=== PATIENT | female | born 1995 | race Caucasian/White ===

== ENCOUNTER 2022-06-11 08:00 | Outpatient (CLI) | payer OTHER | END 2022-06-11 23:59 | disposition home or self-care (01) | LOC: LAB.N 08:00 | PROVIDERS: ATTEND Nurse Practitioner | DX: R30.0 Dysuria (principal) | CPT/HCPCS: 87086; 87181 ==

== ENCOUNTER 2022-09-04 15:22 | Outpatient (CLI) | payer OTHER ==
[2022-09-04 15:47] LABS: BASOPHILS % (AUTO) 0.5 %; EOSINOPHILS # (AUTO) 0.3 10^3/uL (0.0-0.7); EOSINOPHILS % (AUTO) 3.9 %; HCT - HEMATOCRIT 39.9 % (37.0-47.0); HGB - HEMOGLOBIN 13.4 g/dL (12.0-16.0); LYMPHOCYTES # (AUTO) 1.4 10^3/uL (1.5-3.5); LYMPHOCYTES % (AUTO) 21.1 %; MEAN CORPUSCULAR HEMOGLOBIN 31.2 pg (27.0-31.0); MEAN CORPUSCULAR HGB CONC 33.6 g/dL (32.0-36.0); MEAN PLATELET VOLUME 8.6 fL (7.9-10.8); MONOCYTES # (AUTO) 0.5 10^3/uL (0.0-1.0); MONOCYTES % (AUTO) 8.2 %; NEUTROPHILS # (AUTO) 4.3 10^3/uL (1.5-6.6); NEUTROPHILS % (AUTO) 65.7 %; PLT - PLATELET COUNT 291 10^3/uL (130-450); RED BLOOD COUNT 4.29 10^6/uL (4.20-5.40); WHITE BLOOD COUNT 6.6 x10^3/uL (4.8-10.8)
[2022-09-05 06:09] LABS: HBsAG SCREEN Negative (Negative); HCV AB 0.2 s/co ratio (0.0-0.9)
[2022-09-05 08:10] LABS: RPR Non Reactive (Non Reactive)
[2022-09-05 11:09] LABS: VARICELLA-ZOSTER AB IGG 1702 index (Immune >165)
[2022-09-05 22:08] LABS: HIV SCREEN 4TH GENERATION Non Reactive (Non Reactive)
== END 2022-09-04 15:23 | disposition home or self-care (01) ==
LOC: LAB 15:22
PROVIDERS: ATTEND Nurse Practitioner Obstetrics & Gynecology
DX: Z36.89 Encounter for other specified antenatal screening (principal)
CPT/HCPCS: 36415; 85025; 86592; 86762; 86787; 86803; 86850; 86900; 86901; 87340; 87389

== ENCOUNTER 2022-11-08 11:29 | Outpatient (CLI) | payer OTHER ==
[2022-11-12 12:09] LABS: AFP MOM See interpretation. (.); AFP VALUE 70.3 ng/mL (.); DIA MOM See interpretation. (.); DIA VALUE 123.93 pg/mL (.); DSR (BY AGE) 1 IN 971 (.); DSR (SECOND TRIMESTER) 1 IN See interpretation. (.); GESTAT. AGE METHOD As provided (.); HCG MOM See interpretation. (.); HCG VALUE 44696 mIU/mL (.); MATERNAL AGE AT EDD 26.2 yr (.); OPEN SPINA BIFIDA RISK 1 IN See interpretation. (.); RESULTS Report (.); TEST RESULTS See interpretation. (.); TRISOMY 18 RISK See interpretation. (.); UE3 MOM See interpretation. (.); UE3 VALUE 1.53 ng/mL (.)
== END 2022-11-08 11:30 | disposition home or self-care (01) ==
LOC: LAB 11:29
PROVIDERS: ATTEND Nurse Practitioner Obstetrics & Gynecology
DX: Z13.79 Encounter for other screening for genetic and chromosomal anomalies (principal)
CPT/HCPCS: 36415; 81511

== ENCOUNTER 2022-11-15 14:34 | Outpatient (CLI) | payer OTHER ==
--- NOTE | 2022-11-15 16:41 | Ultrasound Report ---
PROCEDURE: OB Detailed Eval INDICATIONS: SUPERVISION OF OUTSIDE/PRIOR DATING DATA: Last menstrual period (LMP): 06/11/2022. LMP-based estimated date of delivery (LUCIANA): 03/18/2023. First dating scan (date and location): 08/23/2022. Estimated date of delivery (LUCIANA) from first dating scan: 03/29/2023. The below data below was generated using the ultrasound LUCIANA of 03/29/2023 TECHNIQUE: Real-time scanning was performed of the fetus, with image documentation and biometric measurements. COMPARISON: Outside Limited ultrasound 08/23/2022 FINDINGS: General: A single living intrauterine gestation is present. Presentation: Breech Placenta: Placental position is posterior, without previa. Amniotic fluid index: 12.8 cm, within normal limits for gestational age. Largest pocket 3.8 cm heart rate: 148 beats per minute. Maternal cervical canal: 4.6 cm long; normal length is 2.5 cm or more. biometrics: Biparietal diameter: 5.0 cm 21 weeks 0 days Head circumference: 18.7 cm 21 weeks 0 days Abdominal circumference: 16.3 cm 21 weeks 3 days Femur length: 3.4 cm 20 weeks 2 days Estimated gestational age from initial scan: 20 weeks 6 days Composite gestational age from present scan: 20 weeks 6 days Estimated weight and percentile: 400 g, 59th percentile Measurement variability in biometric dating: +/- 10 days from 12-20 weeks gestation, +/- 2 weeks from 20-30 weeks gestation, +/- 3 weeks at 30 weeks gestation or later. Anatomic survey: Neuro: Ventricles are normal at less than 10 mm. Cisterna magna is normal at 3-11 mm. Cerebellum i s normal in size and morphology. Nuchal skin fold: Normal at less than 6 mm between 14 and 20 weeks gestational age. Face: Nose and lips, facial profile are normal. Spine: No evidence for spina bifida. Heart: 4-chambered heart is present, with normal ventricular outflow tracts. Diaphragm: Diaphragm is intact. Stomach: Left-sided stomach is present. Kidneys: No hydronephrosis. Normal is less than 5 mm in 2nd trimester, less than 7 mm in 3rd trimester. Cord: 3 vessel cord has orthotopic insertion. Bladder: Normal in size. Extremities: All 4 extremities are visualized. IMPRESSION: Single live intrauterine with ultrasound gestational age today of 20 weeks 6 days. Anatomy is within normal limits. Reviewed by: Yuridia Finney MD on 11/15/2022 4:40 PM PST Approved by: Yuridia Finney MD on 11/15/2022 4:40 PM PST Station ID: [id number]
== END 2022-11-15 14:35 | disposition home or self-care (01) ==
LOC: DI 14:34
PROVIDERS: ATTEND Nurse Practitioner Obstetrics & Gynecology
DX: Z34.02 Encounter for supervision of normal first pregnancy, second trimester (principal); Z3A.20 20 weeks gestation of pregnancy; Z36.89 Encounter for other specified antenatal screening

== ENCOUNTER 2022-12-31 13:54 | Outpatient (CLI) | payer OTHER | END 2022-12-31 13:55 | disposition critical access hospital (66) | LOC: EMS 13:54 | DX: O99.891 Other specified diseases and conditions complicating pregnancy (principal); R55 Syncope and collapse; R10.32 Left lower quadrant pain; Z3A.27 27 weeks gestation of pregnancy | CPT/HCPCS: A0425; A0429 ==

== ENCOUNTER 2022-12-31 14:19 | Outpatient (CLI) | payer OTHER ==
[2022-12-31] MEDS ORDERED: LACTATED RINGERS 1,000 ML IV ONE (14:25)
[2022-12-31] MEDS ORDERED: ONDANSETRON 4 MG/2 ML VIAL IVP PRN (14:25)
[2022-12-31] MEDS ORDERED: ACETAMINOPHEN 500 MG TABLET PO PRN (14:27)
[2022-12-31 16:39] LABS: BASOPHILS % (AUTO) 0.4 %; EOSINOPHILS # (AUTO) 0.2 10^3/uL (0.0-0.7); EOSINOPHILS % (AUTO) 1.6 %; HCT - HEMATOCRIT 34.5 % (37.0-47.0); HGB - HEMOGLOBIN 11.3 g/dL (12.0-16.0); LYMPHOCYTES # (AUTO) 1.1 10^3/uL (1.5-3.5); LYMPHOCYTES % (AUTO) 11.7 %; MEAN CORPUSCULAR HEMOGLOBIN 31.1 pg (27.0-31.0); MEAN CORPUSCULAR HGB CONC 32.8 g/dL (32.0-36.0); MEAN PLATELET VOLUME 8.7 fL (7.9-10.8); MONOCYTES # (AUTO) 0.6 10^3/uL (0.0-1.0); MONOCYTES % (AUTO) 6.4 %; NEUTROPHILS # (AUTO) 7.5 10^3/uL (1.5-6.6); NEUTROPHILS % (AUTO) 78.6 %; PLT - PLATELET COUNT 274 10^3/uL (130-450); RED BLOOD COUNT 3.63 10^6/uL (4.20-5.40); RED CELL DISTRIBUTION WIDTH 12.3 % (12.0-15.0); WHITE BLOOD COUNT 9.5 x10^3/uL (4.8-10.8)
[2022-12-31 19:20] VITALS: BP 155/65
--- NOTE | 2022-12-31 23:21 | PROVIDER PROGRESS NOTE ---
- HPI Chief Complaint: Fall Current : Vital Signs Temperature 36.6 C 12/31/22 14:28 Heart Rate 92 12/31/22 14:28 Respiratory Rate 18 12/31/22 14:28 Blood Pressure 122/75 12/31/22 14:28 Temperature 36.6 C 12/31/22 14:28 Heart Rate 88 12/31/22 18:38 Respiratory Rate 17 12/31/22 18:38 Blood Pressure 155/65 H 12/31/22 18:38 O2 Saturation If not protocol: Oxygen Flow, liters/minute - Procedures OB Procedure Performed: NST Diagnosis/Indication for NST: Other - Plan Plan: Jasmine presents to [facility] with c/o syncopal episode while at the store and fell into a display rack where she hit the right side of her head, her right wrist, and her right hip. She state when she came to she rolled over on her side so she was initially unsure if she landed on her stomach however the coal or ore controller told her she fell on to her side. She is currently nauseous and has a headache. She reports +FM, she denies leakage of fluid or vaginal bleeding. She denies contractions. She states she had lunch approximately 1 hour prior to the episode but has only had approximately 10oz of water to drink today. She has a history of anemia in her last . She did have a syncopal episode in the first trimester of her first but other than that 1 incident she has never had anything like this before. NST reactive. FHR baseline 130s, moderate variability, + accels, no decels No contractions appreciated via tocometry CBC WNL 1 Liter of LR administered over 1 hour. Continuous monitoring x 4 hours -reassuring Tylenol administered via IV Zofran administered via IV Pt released home with head injury precautions and PTL precautions. She was instructed to increase her fluid intake to 100oz per day and rest for the remainder of the week and work note provided. Pt has emergency contact information. F/u as scheduled in the office or sooner if needed. FIINAL DIAGNOSIS: Fall in , second trimester
== END 2022-12-31 18:35 | disposition home or self-care (01) ==
LOC: WFO 14:19 → FBP 14:20 → WFO 18:35
PROVIDERS: ATTEND Obstetrics & Gynecology
DX: O99.891 Other specified diseases and conditions complicating pregnancy (principal); R55 Syncope and collapse; R51.9 Headache, unspecified; R11.0 Nausea; W18.30XA Fall on same level, unspecified, initial encounter; Y92.512 Supermarket, store or market as the place of occurrence of the external cause
CPT/HCPCS: 85025; 96361; 96374; 99215; A9270; J7120

== ENCOUNTER 2023-01-09 10:59 | Outpatient (CLI) | payer OTHER | END 2023-01-09 23:59 | disposition home or self-care (01) | LOC: LAB.N 10:59 | PROVIDERS: ATTEND Nurse Practitioner Obstetrics & Gynecology | DX: Z36.9 Encounter for antenatal screening, unspecified (principal) | CPT/HCPCS: 36415; 82950 ==

== ENCOUNTER 2023-04-01 00:15 | Inpatient (IN) | payer OTHER ==
[2023-04-01] MEDS ORDERED: NIFEdipine 10 MG CAPSULE PO PRN (00:28)
[2023-04-01] MEDS ORDERED: LABETALOL 20 MG/4 ML SYRINGE IVP PRN ×3 (00:28)
[2023-04-01] MEDS ORDERED: miSOPROStoL 200 MCG TABLET PR PRN (00:28)
[2023-04-01] MEDS ORDERED: SODIUM CHLORIDE FLUSH 0.9% 10 ML SYRINGE IVP PRN (00:28)
[2023-04-01] MEDS ORDERED: OXYTOCIN 10 UNIT/ML VIAL IM PRN (00:28)
[2023-04-01] MEDS ORDERED: fentaNYL 100 MCG/2 ML VIAL IVP PRN (00:28)
[2023-04-01] MEDS ORDERED: CARBOPROST TROMETHAMINE 250 MCG/ML AMP IM PRN (00:28)
[2023-04-01] MEDS ORDERED: miSOPROStoL 200 MCG TABLET BC PRN (00:28)
[2023-04-01] MEDS ORDERED: lidocaine 1% 20 ML MDV ID PRN (00:28)
[2023-04-01] MEDS ORDERED: OXYTOCIN/SODIUM CHLORIDE 500 ML IV PRN (00:28)
[2023-04-01] MEDS ORDERED: TERBUTALINE 1 MG/ML VIAL SUBQ PRN (00:28)
[2023-04-01] MEDS ORDERED: hydrALAZINE INJ 20 MG/ML VIAL IVP PRN ×2 (00:28)
[2023-04-01] MEDS ORDERED: METHYLERGONOVINE 0.2 MG/ML VIAL IM PRN (00:28)
[2023-04-01] MEDS ORDERED: LACTATED RINGERS 500 ML IV ONE (00:28)
[2023-04-01] MEDS ORDERED: TRANEXAMIC ACID IN NACL 1,000 MG/100 ML BAG IV PRN (00:28)
[2023-04-01 01:06] LABS: BASOPHILS % (AUTO) 0.3 %; EOSINOPHILS # (AUTO) 0.1 10^3/uL (0.0-0.7); EOSINOPHILS % (AUTO) 1.7 %; HCT - HEMATOCRIT 35.8 % (37.0-47.0); HGB - HEMOGLOBIN 11.7 g/dL (12.0-16.0); LYMPHOCYTES # (AUTO) 1.5 10^3/uL (1.5-3.5); LYMPHOCYTES % (AUTO) 18.8 %; MEAN CORPUSCULAR HEMOGLOBIN 28.2 pg (27.0-31.0); MEAN CORPUSCULAR HGB CONC 32.7 g/dL (32.0-36.0); MEAN CORPUSCULAR VOLUME 86.3 fL (81.0-99.0); MONOCYTES # (AUTO) 0.6 10^3/uL (0.0-1.0); MONOCYTES % (AUTO) 7.5 %; NEUTROPHILS # (AUTO) 5.5 10^3/uL (1.5-6.6); NEUTROPHILS % (AUTO) 70.5 %; PLT - PLATELET COUNT 296 10^3/uL (130-450); RED BLOOD COUNT 4.15 10^6/uL (4.20-5.40); RED CELL DISTRIBUTION WIDTH 13.6 % (12.0-15.0); WHITE BLOOD COUNT 7.8 x10^3/uL (4.8-10.8)
[2023-04-01] MEDS ORDERED: ROPIVACAINE 0.2% 200 MG/100 ML BAG EP ONE (01:19)
[2023-04-01] MEDS ORDERED: NALBUPHINE 10 MG/ML AMP IVP PRN (02:06)
[2023-04-01] MEDS ORDERED: ROPIVACAINE 0.2% 200 MG/100 ML BAG EP PRN (02:06)
[2023-04-01] MEDS ORDERED: NALOXONE 0.4 MG/ML VIAL IVP PRN (02:06)
[2023-04-01] MEDS ORDERED: ONDANSETRON 4 MG/2 ML VIAL IVP PRN (02:06)
[2023-04-01] MEDS ORDERED: diphenhydrAMINE INJ 50 MG/ML VIAL IVP PRN (02:06)
[2023-04-01] MEDS ORDERED: METOCLOPRAMIDE 10 MG/2 ML VIAL IVP PRN (02:06)
--- NOTE | 2023-04-01 02:10 | ANESTHESIA ---
Pre-Anesthesia VS, & Labs - Diagnosis active labor - Procedure labor epidural Height: 5 ft 5 in - NPO Other (clears) - Is Patient ?: Yes Home Medications and Allergies Active Medications Carboprost Tromethamine (Carboprost Tromethamine 250 Mcg/Ml Amp) 250 mcg IM .ONCE PRN PRN Reason: Hemorrhage Diphenhydramine HCl (Diphenhydramine Inj 50 Mg/Ml Vial) 12.5 - 25 mg IVP Q6HR PRN PRN Reason: ITCHING Ephedrine Sulfate (Ephedrine 50 Mg/Ml Vial) 5 mg IVP Q5M PRN PRN Reason: For SBP<100;give until SBP>100 Fentanyl (Fentanyl 100 Mcg/2 Ml Vial) 50 mcg IVP Q1H PRN PRN Reason: Severe Pain (score 7-10) Hydralazine HCl (Hydralazine Inj 20 Mg/Ml Vial) 5 - 10 mg IVP Q20M PRN; Protocol PRN Reason: SBP> or= 160 OR DBP> or= 110 Hydralazine HCl (Hydralazine Inj 20 Mg/Ml Vial) 10 mg IVP .ONCE PRN; Protocol PRN Reason: SBP> or= 160 OR DBP> or= 110 Oxytocin/Sodium Chloride (Pitocin/Sodium Chloride) 500 mls @ 999 mls/hr IV PRN PRN; Protocol PRN Reason: POST- HEMORR PREVENTION Tranexamic Acid (Tranexamic 1,000 Mg/100ml-Nacl) 1,000 mg in 100 mls @ 600 mls/hr IV Q30M PRN PRN Reason: EBL >1200mL and within 3hr Lactated Ringer's (Lr) 1,000 mls @ 125 mls/hr IV .Q8H HUGO Ropivacaine (Naropin 0.2%) 200 mg in 100 mls @ 0 mls/hr EP PRN PRN; Protocol PRN Reason: PAIN Labetalol HCl (Labetalol 20 Mg/4 Ml Syringe) 20 - 80 mg IVP Q10M PRN; Protocol PRN Reason: SBP> or= 160 OR DBP> or= 110 Labetalol HCl (Labetalol 20 Mg/4 Ml Syringe) 20 mg IVP .ONCE PRN; Protocol PRN Reason: SBP> or= 160 OR DBP> or= 110 Labetalol HCl (Labetalol 20 Mg/4 Ml Syringe) 20 - 40 mg IVP Q10M PRN; Protocol PRN Reason: SBP> or= 160 OR DBP> or= 110 Lidocaine HCl (Lidocaine 1% 20 Ml Mdv) 20 ml ID .ONCE PRN PRN Reason: PERINEAL REPAIR Stop: 04/04/23 00:28 Methylergonovine Maleate (Methylergonovine 0.2 Mg/Ml Vial) 0.2 mg IM .ONCE PRN PRN Reason: Hemorrhage Metoclopramide HCl (Metoclopramide 10 Mg/2 Ml Vial) 10 mg IVP Q6HR PRN PRN Reason: Nausea / Vomiting Misoprostol (Misoprostol 200 Mcg Tablet) 600 mcg BC .ONCE PRN PRN Reason: Hemorrhage Misoprostol (Misoprostol 200 Mcg Tablet) 800 mcg MO .ONCE PRN PRN Reason: Hemorrhage Nalbuphine HCl (Nalbuphine 10 Mg/Ml Amp) 2.5 - 5 mg IVP Q4H PRN PRN Reason: ITCHING Naloxone HCl (Naloxone 0.4 Mg/Ml Vial) 0.1 mg IVP Q2M PRN PRN Reason: RR<8 Nifedipine (Nifedipine 10 Mg Capsule) 10 - 20 mg PO Q20M PRN; Protocol PRN Reason: SBP> or= 160 OR DBP> or= 110 Ondansetron HCl (Ondansetron 4 Mg/2 Ml Vial) 4 mg IVP Q6HR PRN PRN Reason: Nausea / Vomiting Oxytocin (Oxytocin 10 Unit/Ml Vial) 10 unit IM .ONCE PRN PRN Reason: Step One if no IV access. Sodium Chloride (Sodium Chloride Flush 0.9% 10 Ml Syringe) 10 ml IVP PRN PRN PRN Reason: NEEDED PER PROVIDER ORDERS Sodium Chloride (Sodium Chloride Flush 0.9% 10 Ml Syringe) 10 ml IVP Q8H HUGO Terbutaline Sulfate (Terbutaline 1 Mg/Ml Vial) 0.25 mg SUBQ .ONCE PRN PRN Reason: Tachystole Allergies/Adverse Reactions: Allergies Allergy/AdvReac Type Severity Reaction Status Date / Time No Known Drug Allergies Allergy Verified 12/31/22 15:22 Anes History & Medical History - Anesthetic History Anesthesia Complications: reports: No previous complications - Medical History Cardiovascular: reports: None Pulmonary: reports: None Gastrointestinal: reports: None History of Cancer?: No Exam General: Alert, Oriented x3, Moderate distress Dental: WNL Mouth Opening: Greater than 4 Fingerbreadths Neck Mobility: Normal Mallampati classification: II Thyromental Distance: greater than 6 cm Respiratory: Lungs clear Cardiovascular: Regular rate Plan Anesthesia Type: Epidural Consent for Procedure(s) Verified and Reviewed: Yes Code Status: Attempt Resuscitation ASA classification: 2-Mild systemic disease Is this case an emergency?: No
[2023-04-01] MEDS: ePHEDrine 50 MG/ML VIAL IVP PRN ×2 (02:41→02:47)
[2023-04-01] MEDS: LACTATED RINGERS 1,000 ML IV SCH ×2 (02:48→10:57)
[2023-04-01] MEDS ORDERED: WITCH HAZEL/GLYCERIN 1 PAD TOP PRN (03:43)
[2023-04-01] MEDS ORDERED: HYDROCORTISONE 1% CREAM 28 GM TUBE PR PRN (03:43)
--- NOTE | 2023-04-01 03:48 | DELIVERY NOTE ---
Delivery Note - Labor Labor: positive: Spontaneous - Delivery Method Delivery Method: positive: Spontaneous vaginal delivery - Presentation Presentation: positive: Vertex, LUCHO - right occiput anterior - Nuchal Cord Nuchal Cord: positive: Present, Reduced - Amniotic Fluid Description Amniotic Fluid Description: positive: Clear - Episiotomy Type Episiotomy Type: positive: None - Laceration Laceration: positive: None - Delivery Outcome Delivery Outcome: positive: Livebirth - : positive: Placed in direct skin contact with mother, Bulb syringe, Stimulated, Warmed, [place] used sex: positive: Female - Cord Cord: positive: 3 vessels - Placenta Placenta: positive: Intact, Spontaneous - Estimated Blood Loss Estimated Blood Loss (in cc): 250 - Post Delivery Events Post Delivery Events: positive: Shoulder dystocia - Delivery Comments (Free Text/Narrative) Delivery Comments (Free Text/Narrative): Labor: This 28yo @ 40.3wks gestation by 8.6wk U/S presented at 0045 on 04/01/2023 in active labor. Cervix was 3-4/80/-2 and vertex with grossly ruptured membranes and clear fluid which occurred at 2130 this evening. FHR pattern demonstrated Category I pattern until placement of epidural at which time she experienced hypotension with noted heart rate decelerations secondary to maternal hypotension however FHR recovered with fluid bolus and position changes in addition to administration of ephedrine. Normal labor course. Pt progressed to c/c/+1 at 0242. : Normal SVB of viable female infant on 04/01/2023 @ 0304 in LUCHO position with left anterior shoulder following a 70 second shoulder dystocia which was resolved easily with Yovani maneuver. Nuchal cord x 1 was reduced. The was placed on maternal abdomen, stimulated, dried, and placed skin to skin. 's were 7/8 at 1 and 5 minutes respectively. Pitocin administered via IV for hemostasis. The umbilical cord was allowed to stop pulsating at which t paul it was doubly clamped by CNM and cut by FOB. 3VC. Cord blood was obtained. Fundal massage and gentle cord traction applied for active management of the third stage. Placenta delivered spontaneously and intact at 0312. EBL 250mL. Fourth stage: Uterine fundus firm and there is no excessive bleeding. The perineum, vagina, and cervix were inspected and noted to be intact. initiated. Family bonding well. Both mother and baby were left in stable condition.
--- NOTE | 2023-04-01 03:58 | HISTORY & PHYSICAL EXAMINATION ---
Admit History - Visit Reason Visit Reason: Contractions, Membranes rupture - : 2 Parity: 1 Premature: 0 Ectopic: 0 : 0 Care: positive: [facility] Risk/History: positive: None Complications This : positive: None Smoking Status: Never smoker - Mother's Labs Mother's Blood Type: positive: B Mother's RH: positive: Positive GBS: positive: Group B Step Negative Rubella Status: positive: Immune Meds/Allgy - Allergies Allergies/Adverse Reactions: Allergies Allergy/AdvReac Type Severity Reaction Status Date / Time No Known Drug Allergies Allergy Verified 12/31/22 15:22 Review of Systems - Constitutional Constitutional: denies: Fatigue, Fever, Chills, Malaise - Eyes Eyes: denies: Blurred vision, Spots in vision, Dipolpia - Cardiovascular Cariovascular: denies: Irregular heart rate, Palpitations, Chest pain, Edema - Respiratory Respiratory: denies: Cough, Wheezing, SOB at rest - Gastrointestinal Gastrointestinal: denies: Constipation, Diarrhea, Nausea, Vomiting - Genitourinary Genitourinary: denies: Dysuria - Integumentary Integumentary: denies: Rash, Pruritis - Neurological Neurological: denies: Headache - Psychiatric Psychiatric: denies: Depression, Anxiety - Hematologic/Lymphatic Hematologic/Lymphatic: denies: Anemia Physical - Abdominal Exam Contraction Frequency (min/apart): 2-3 Contraction Intensity: positive: Strong Uterine Resting Tone: positive: Soft - Monitoring Heart Rate Baseline: 140 Strip Review: positive: Category I - Presentation Presentation: positive: Vertex - Vaginal Exam Membranes: positive: Membranes ruptured Dilation (in cm): 3-4 Effacement (%): 80 Station: positive: -2 Cervical Position: positive: Midposition - Speculum Exam Speculum Exam Performed: positive: No Findings: positive: Gross leak Plan for Labor - Plan For Labor I expect patient to be DC'd or transferred within 96 hours.: Yes Plan for Labor: HPI:Jasmine is a 28yo @ 40.2wks gestation by 8.6wk U/S who presents to [facility] with c/o contractions and grossly ruptured membranes with clear fluid at 2130 this evening. She reports contractions have increased in frequency and intensity since that time and she has also intermittently experienced increase pelvic pressure. She denies vaginal bleeding and reports +FM. She is a patient of [facility] who has received consistent care for the duration of her which has remained uncomplicated. She is supported by her Art. Dating criteria: LMP: 06/11/2022 Initial U/S @ 8.6wks dates Serial exams - agree [facility] Hx: Term x 1. SAB x 0. Last pap 04/2022 WNL, no gross abnormals. Medical Hx: No significant Surgical hx: none Family hx: No significant Meds: PNV Allergies: No Known Social: , lives with Art who is a sports development officer for [employer]. She is active duty [employer]. No tobacco, ETOH or recreational drug use. Caffeine intake- minimal. course: B positive, antibody negative Rubella immune;varicella immune Initial U/S @ 8.6wks dates Genetic screening- negative FAS WNL. Posterior placenta, no previa. Size c/w dating. 3VC. CABRERA WNL. Glucola 91. Tdap vaccine received 3rd trimester Influenza vaccine 07/2022 COVID vaccine x 2 (01/2021) GBS negative Physical exam: Normocephalic, atraumatic Heart RRR w/o M/G/R Lungs CTAB Abdomen gravid, soft, nontender. EFW 3800g FHR baseline 140s, moderate variability, + accels, no decels Contractions palpate strong every 2-3 minutes with soft resting tone SVE 3-4/80/-2, posterior and vertex. Grossly ruptured membranes with clear fluid. Bilateral LE's trace edema. Mood is good. Assessment: 28yo @ 40.3wks gestation by 8.6wk U/S Active labor GBS negative FHR Category I Plan: Admit to [facility] for expectant management. Continuous monitoring. Anesthesia notified to present for placement of epidural for pain management per pt request. Anticipate .
[2023-04-01] MEDS: IBUPROFEN 800 MG TABLET PO SCH ×3 (08:46→21:27)
[2023-04-01] MEDS: ACETAMINOPHEN 500 MG TABLET PO SCH ×2 (08:46→16:55)
[2023-04-01] MEDS: SODIUM CHLORIDE FLUSH 0.9% 10 ML SYRINGE IVP SCH ×2 (10:57→10:58)
[2023-04-01] MEDS: DOCUSATE SODIUM 100 MG CAPSULE PO SCH (21:28)
[2023-04-02] MEDS: ACETAMINOPHEN 500 MG TABLET PO SCH ×2 (01:11→09:10)
[2023-04-02] MEDS: IBUPROFEN 800 MG TABLET PO SCH ×2 (03:04→09:10)
[2023-04-02] MEDS: DOCUSATE SODIUM 100 MG CAPSULE PO SCH (09:10)
--- NOTE | 2023-04-02 10:38 | Discharge Plan ---
Discharge Plan Problem Reviewed?: Yes Disposition: Home, Self Care Condition: Good Diet: Regular Activity Restrictions: No Restrictions Shower Restrictions: No Driving Restrictions: No Weight Bearing: Full Weight Instruction Topics: Vaginal After No Smoking: If you smoke, Please STOP! Call for help. Follow-up with: Nora Andrew CNM, ARNP [Primary Care Provider] - 1 Week
--- NOTE | 2023-04-02 10:44 | DISCHARGE SUMMARY ---
Discharge Summary Condition at Discharge: Good Discharge Disposition: 01 Home, Self Care - HOSPITAL COURSE Hospital Course: Date of Admission: 04/01/2023 Date of Discharge: 04/02/2023 Diagnosis on Admission: 1. 28yo @ 40.3wks gestation by 8.6wk U/S 2. Active labor 3. GBS negative 4. FHR Category I Diagnosis on Discharge: 1. 28yo PPD#1 s/p TSVB viable female 2. 3. Normal recovery Brief History: She is a patient of [facility] who presented on 04/01/2023 in active labor. SVE was 3-4/80/-2 and vertex with grossly ruptured membranes. FHR pattern demonstrated a Category I pattern throughout labor. Epidural was placed per maternal request. She progressed precipitously to deliver a viable female on 04/01/2023 at 0304 in LUCHO position following a 70 second shoulder dystocia. Apgars were 7/8 at 1 and 5 minutes respectively. EBL 250mL. Perineum was found to be intact. She has been doing well in her course. She is ambulating and tolerating a regular diet. She is urinating without difficulty and her lochia is normal. She is bonding well with her baby and is well. She will be discharged home today on day #1 with instructions to continue taking her vitamin while and to continue taking ibuprofen and tylenol over the counter as needed for pain management. She intends to follow up with myself at [facility] in 1 week or sooner if needed. She has been given precautions to call if she has any worsening fevers, chills, abdominal pain, increased vaginal bleeding or foul smelling vaginal lochia. Physical Exam: Normocephalic, atraumatic. Heart RRR w/o M/G/R, lungs CTAB, abdomen soft and nontender with fundus firm at U-1, perineum intact, light lochia rubra, bilateral LE's trace edema. Mood is good. - ALLERGIES Allergies/Adverse Reactions: Allergies Allergy/AdvReac Type Severity Reaction Status Date / Time No Known Drug Allergies Allergy Verified 12/31/22 15:22
[2023-04-02 12:40] VITALS: BP 125/72
--- NOTE | 2023-04-02 19:19 | Labor Flowsheet ---
Labor Flowsheet Datetime Report Generated by CPN: 04/02/2023 19:18 Datetime: 04/01/2023 06:10 Patient Position/Activity: Standing; Walking Hygiene: Deepti Care; Underpad Changed; Gown Changed I/O Interventions: Up to BR (Annotations: Voided 1000ml blood tinged uring) Datetime: 04/01/2023 06:01 PAIN Pain Scale: 0 Datetime: 04/01/2023 06:00 Epidural Procedure Other: Cath Removed; Cath Intact Datetime: 04/01/2023 05:31 Respirations: 20 Datetime: 04/01/2023 05:01 Stage of : Recovery Pain Presence: None/Denies Pain Type: N/A Pain Goal: 4 Pain Relief Measures: Comfort Measures Pain Assessment Comments: Epidural infusion off directly after delivery, muscle tone and voluntary movement returning Datetime: 04/01/2023 04:45 VITAL SIGNS NBP Sys/Miroslava/Mean (mmHg): 119 : 65 : 77 Pulse: 116 Datetime: 04/01/2023 03:31 Temperature (C): 36.8 Temperature Route: Oral Datetime: 04/01/2023 03:28 Antiemetics/Antacids: Zofran (mg) @ 4mg SIVP Datetime: 04/01/2023 03:12 STAGE 2 Stage 2 Comments: pitocin bolus Datetime: 04/01/2023 03:08 Membranes Ruptured Date/Time: 03/31/2023 21:00 Membranes Rupture Method: Spontaneous Amniotic Fluid Color: Clear Amniotic Fluid Amount: Moderate Amniotic Fluid Odor: Normal Datetime: 04/01/2023 03:04 Comments: , viable female Datetime: 04/01/2023 03:01 LaborFlag: Labor Datetime: 04/01/2023 03:00 SpO2 (%): 100 Frequency (min): 2-2.5 Quality: Strong Duration (sec): 50-70 Pattern: Normal: <= 5 Contractions in 10 Minutes Resting Tone (Palpate): Relaxed ASSESSMENT A Monitor Mode: Telemetry FHR Baseline Rate : 125 Variability: Marked >25 bpm Accelerations: 15X15 Decelerations: Variable Actions for Decelerations: provider, FRANCISCA Andrew, at bedside. Pt is pushing with contractions wi th descent. Category: Category II Datetime: 04/01/2023 02:59 Patient Care Comments: voiding with pushing Datetime: 04/01/2023 02:47 MEDICATIONS Magnesium/Antihypertensives: Ephedrine IV (mg) @ 5 Datetime: 04/01/2023 02:42 VAGINAL EXAM Dilatation (cm): 10.0 Exam by: Kamran Datetime: 04/01/2023 02:40 FHR Baseline Changes: No Baseline Change Datetime: 04/01/2023 02:28 MATERNAL ASSESSMENT Level of Consciousness: Alert DTR's/Clonus: DTRs 1+ Headache: Denies Breath Sounds, Left: Clear and Equal Breath Sounds, Right: Clear and Equal Nausea/Vomiting: Denies RUQ Epigastric Pain: Denies Maternal Comments: Pt has epidural in place; full range of motion prior to epidual Datetime: 04/01/2023 02:25 Comfort Measures: Breathing/Relaxation; Family Support Datetime: 04/01/2023 02:20 Oxygen Method: Room Air Datetime: 04/01/2023 02:10 UTERINE ACTIVITY Monitor Mode: telemetry Datetime: 04/01/2023 02:01 Communication Comments: Providers remain at bedside, Aube MACHINE TOOL TECHNOLOGY INSTRUCTOR and CNM Kamran Datetime: 04/01/2023 01:54 Effacement (%): 100 Station: 1 Datetime: 04/01/2023 01:46 Epidural Procedure: Test Dose Datetime: 04/01/2023 01:35 Pain Location: Abdomen; Right Groin; Left Groin Pain Coping: Breathing Through Contractions; Declines Medication or Epidural PROCEDURE TIME OUT Procedure Type: Epidural 0135 Procedure Verify: Correct Patient Identity; Correct Side and Site are Marked; Accurate Procedure Co nsent Form; Agreement on Procedure to be Done; Correct Patient Position; Safety Precautions Based on Patient History or Medication Use ANESTHESIA Anesthesia Plans: Epidural Epidural Positioning: Sitting Anesthesia Comments: Time out Datetime: 04/01/2023 01:32 COMMUNICATION Communication: Provider at Bedside Provider Notified (Name): MACHINE TOOL TECHNOLOGY INSTRUCTOR Aube Datetime: 04/01/2023 01:30 Medication Comments: Nitrous off; pt awaiting MACHINE TOOL TECHNOLOGY INSTRUCTOR for epidural Datetime: 04/01/2023 00:50 PATIENT CARE IV/Blood Work: IV Started; IV Bolus Started; Labs Drawn with IV Start
== END 2023-04-02 14:30 | disposition home or self-care (01) | DRG 807 ==
LOC: WFO 00:15 → FBP 00:16 → UNDOADMIN 00:46 → FBP 00:46 → OBS 08:45 → UNDODISIN 04-02 14:30
PROVIDERS: ADMIT Nurse Practitioner Obstetrics & Gynecology; ATTEND Nurse Practitioner Obstetrics & Gynecology
PROC: 10E0XZZ Delivery of Products of Conception, External Approach (ICD-10-PCS; principal; 2023-04-01)
DX: O48.0 Post-term pregnancy (principal); Z37.0 Single live birth; Z3A.40 40 weeks gestation of pregnancy; O62.3 Precipitate labor; O66.0 Obstructed labor due to shoulder dystocia; O76 Abnormality in fetal heart rate and rhythm complicating labor and delivery; O26.53 Maternal hypotension syndrome, third trimester
CPT/HCPCS: 85025; 86850; 86900; 86901; A9270; J7120; 99215

== ENCOUNTER 2023-11-27 14:15 | Outpatient (CLI) | payer OTHER ==
--- NOTE | 2023-11-27 16:23 | XRAY Report ---
PROCEDURE: Lumbar Spine 2-3V INDICATIONS: LOW BACK PAIN TECHNIQUE: 3 views of the lumbar spine were acquired. COMPARISON: None. FINDINGS: Bones: 5 [id number] vertebrae are present. There is normal bony alignment. No vertebral body compression fractures. No suspicious bony lesions. Soft tissues: Overlying bowel gas pattern is normal. No suspicious soft tissue calcifications. IMPRESSION: No acute fracture or traumatic subluxation. Reviewed by: Lee Ann Garcia MD on 11/27/2023 4:21 PM PST Approved by: Lee Ann Garcia MD on 11/27/2023 4:21 PM PST Station ID: [id number]
--- NOTE | 2023-11-27 22:15 | XRAY Report ---
PROCEDURE: Wrist 3+V LT INDICATIONS: LEFT WRIST PAIN TECHNIQUE: 3 views of the wrist were acquired. COMPARISON: None. FINDINGS: Bones: No fractures or dislocations. No suspicious bony lesions. Soft tissues: No suspicious soft tissue calcifications or masses. IMPRESSION: No acute bony abnormality. If clinical symptoms persist or there is high clinical suspicion for inter nal derangement such as tendon or ligamentous injuries, consider MRI for further evaluation. Reviewed by: Nara Gonzalez MD on 11/27/2023 10:13 PM [facility] Approved by: Nara Gonzalez MD on 11/27/2023 10:13 PM [facility] Station ID: [id number]
== END 2023-11-27 14:30 | disposition home or self-care (01) ==
LOC: DI.N 14:15
PROVIDERS: ATTEND Physician Assistant Medical
DX: M54.50 Low back pain, unspecified (principal); M25.532 Pain in left wrist

== ENCOUNTER 2024-01-02 07:27 | Outpatient (CLI) | payer OTHER ==
--- NOTE | 2024-01-02 21:33 | MRI Report ---
PROCEDURE: Lumbar Spine WO INDICATIONS: LOW BACK PAIN TECHNIQUE: Noncontrast sagittal T1 spin echo and T2 fast echo, sagittal STIR, axial T1 and T2 fast spin echo thr ough the lumbar spine. In cases with scoliosis, additional coronal T2 fast spin echo may be performe d. COMPARISON: Correlation is made with lumbar plain films, 11/27/2023 FINDINGS: Image quality: Excellent. Alignment and Curvature: There is normal bony alignment. Bone Marrow: Marrow is of normal overall signal. No acute vertebral body compression fractures. Spinal Cord: Conus medullaris terminates at the L1 level. Visualized cord demonstrates normal signa l and size. Paraspinous Soft Tissues: No paravertebral masses. T12-L1: Normal in appearance. L1-L2: Normal in appearance. L2-L3: Normal in appearance. L3-L4: Normal in appearance. L4-L5: Normal in appearance. L5-S1: Normal in appearance. IMPRESSION: This is a normal Spine. Reviewed by: Yazan Landin MD on 01/02/2024 8:32 PM [facility] Approved by: Yazan Landin MD on 01/02/2024 8:32 PM [facility] Station ID: [id number]
== END 2024-01-02 07:28 | disposition home or self-care (01) ==
LOC: DI 07:27
PROVIDERS: ATTEND Nurse Practitioner Family
DX: M54.50 Low back pain, unspecified (principal)